=== PATIENT | female | born 1945 | race Caucasian/White ===

== ENCOUNTER 2023-05-28 14:16 | Emergency (ER) | payer MEDICARE ==
[~2023-05-28] VITALS: Ht 160 cm; Wt 81.0 kg
[2023-05-28 15:06] VITALS: BP 144/74
[2023-05-28 15:15] VITALS: BP 123/66
[2023-05-28] MEDS ORDERED: guaiFENesin-CODEINE 200-20 MG/10 ML UDC PO ONE (16:20)
[2023-05-28] MEDS ORDERED: LEVOCETIRIZINE D5 MG PO (16:21)
[2023-05-28] MEDS ORDERED: ZPAK PO (16:21)
[2023-05-28] MEDS ORDERED: MEDDOSEPAK PO (16:21)
[2023-05-28] MEDS ORDERED: BENZONATATE200 MG PO (16:21)
[2023-05-28] MEDS ORDERED: predniSONE 20 MG/TAB PO ONE (16:25)
[2023-05-28 16:46] VITALS: BP 123/66
== END 2023-05-28 17:03 | disposition home or self-care (01) ==
LOC: ED 14:16
DX: J06.9 Acute upper respiratory infection, unspecified (principal); E03.9 Hypothyroidism, unspecified; E78.00 Pure hypercholesterolemia, unspecified; Z20.822 Contact with and (suspected) exposure to COVID-19

== ENCOUNTER 2024-06-13 02:19 | Emergency (ER) | payer MEDICARE ==
[~2024-06-13] VITALS: Ht 160 cm; Wt 71.0 kg
[2024-06-13] VITALS (10 sets, daily range): BP systolic 112–149; BP diastolic 64–74
[~2024-06-13 02:19] MED LIST: BENZONATATE200 MG PO; LEVOCETIRIZINE D5 MG PO; MEDDOSEPAK PO; ZPAK PO
[2024-06-13] MEDS ORDERED: MORPHINE SULFATE 4 MG/ML VIAL IV ONE (03:05)
[2024-06-13] MEDS ORDERED: ONDANSETRON HCl 4 MG/2 ML SDV IV ONE (03:05)
[2024-06-13 03:23] LABS: BASO% 0.2 % (0-3); EOS% 0.9 % (0-8); HEMATOCRIT 36.3 % (37.0-47.0); HEMOGLOBIN 11.3 g/dl (12.0-16.0); IMMATURE GRANULOCYTES 0.3 % (0.0-5.0); LYMPH% 11.4 % (15-41); MEAN CELL VOLUME 93.1 fL CALC (80.0-100.0); MEAN CORPUSCULAR HGB CONC 31.1 g/dL CAL (32.0-36.0); MONO% 3.8 % (2-13); NEUT# 9.84 thou/uL (2.00-7.15); NEUT% 83.4 % (42-76); RED BLOOD COUNT 3.9 mill/uL (4.20-5.60); RED CELL DISTRI WIDTH 14.9 % (11.5-15.5)
[2024-06-13 03:37] LABS: ALBUMIN 3.8 g/dL (3.2-5.0); BILIRUBIN, TOTAL 0.4 mg/dL (0.02-1.3); CREATININE 0.6 mg/dL (0.5-1.0); POTASSIUM 4.1 mmol/l (3.5-5.1); TOTAL PROTEIN 7.5 g/dL (6.3-8.2)
[2024-06-13] MEDS ORDERED: PIPERACILLIN Sodium-Tazobactam 3.375 GM in SODIUM CHLORIDE 0.9% 100 ML IV ONE (05:30)
[2024-06-13 06:50] LABS: URINE BILIRUBIN - DIPSTICK Negative (NEGATIVE); URINE BLOOD DIPSTICK Negative (NEGATIVE); URINE COLOR Yellow; URINE GLUCOSE - DIPSTICK Negative (NEGATIVE); URINE KETONE Negative (NEGATIVE); URINE LEUK ESTERASE Trace (NEGATIVE); URINE NITRITE - DIPSTICK Negative (Negative); URINE PROTEIN - DIPSTICK Negative (NEG-TRACE); URINE UROBILINOGEN - DIPSTICK 0.2 E.U./dL (0.2)
[2024-06-13] MEDS ORDERED: METRONIDAZOLE500 MG PO (10:05)
[2024-06-13] MEDS ORDERED: OMNICEF300 MG PO (10:05)
== END 2024-06-13 10:30 | disposition home or self-care (01) ==
LOC: ED 02:19
PROVIDERS: Family Medicine
DX: R10.11 Right upper quadrant pain (principal); E03.9 Hypothyroidism, unspecified; E78.00 Pure hypercholesterolemia, unspecified; Z93.2 Ileostomy status
CPT/HCPCS: J2405; J2543; Q9967